=== PATIENT | female | born 1970 | race Caucasian/White ===

== ENCOUNTER 2016-08-21 19:48 | Emergency (ER) | payer OTHER ==
[~2016-08-21] VITALS: Ht 167.6 cm; Wt 170.9 kg
[~2016-08-21 19:48] MED LIST: HYDR-971 PO; HYDR1TAB10 PO; IBUP200C PO; METH-37 PO; NAPR500T3 PO; TRAM50TA PO
[2016-08-21 20:00] VITALS: BP 130/67
[2016-08-21] MEDS ORDERED: PRED20TA PO (20:42)
[2016-08-21] MEDS ORDERED: AZIT250T6 PO (20:42)
[2016-08-21] MEDS ORDERED: ALBUTEROL SULFATE 8GM INHALER. INH ONE (21:00)
[2016-08-21] MEDS ORDERED: PREDNISONE 20 MG TABLET PO ONE (21:00)
--- NOTE | 2016-08-21 23:08 | ED.ADGEN ---
Past History Past Medical History: COPD Past Surgical History: Appendectomy, Cholecystectomy, , Hysterectomy, Other Smoking: Cigarettes, Greater than 1 pack/day Alcohol Use: None Drug Use: None Adult General HPI HPI Patient is a 45-year-old female presents emergency department complaining of 3 days of worsening cough. She reports subjective fever. She is a lifelong smoker. Review of Systems Review of Systems Constitutional: Denies fever or chills [] Eyes: Denies change in visual acuity, redness, or eye pain [] HENT: Denies nasal congestion or sore throat [] Respiratory: Denies cough or shortness of breath [] Cardiovascular: No additional information not addressed in HPI [] GI: Denies abdominal pain, nausea, vomiting, bloody stools or diarrhea [] : Denies dysuria or hematuria [] Musculoskeletal: Denies back pain or joint pain [] Integument: Denies rash or skin lesions [] Neurologic: Denies headache, focal weakness or sensory changes [] Endocrine: Denies polyuria or polydipsia [] Current Medications Current Medications Current Medications Medications (Trade) Dose Ordered Sig/[place] Start Time Stop Time Status Last Admin Dose Admin Albuterol Sulfate (Ventolin Hfa) 1 puff 1X ONCE 08/21/16 21:00 08/21/16 21:01 DC Prednisone (Prednisone) 60 mg 1X ONCE 08/21/16 21:00 08/21/16 21:01 DC 08/21/16 21:00 60 MG Allergies Allergies Allergies Coded Allergies Type Severity Reaction Last Updated Verified No Known Drug Allergies 09/24/13 No Physical Exam Physical Exam Constitutional: Well developed, well nourished, no acute distress, non-toxic appearance. [] HENT: Normocephalic, atraumatic, bilateral external ears normal, oropharynx moist, no oral exudates, nose normal. [] Eyes: PERRLA, EOMI, conjunctiva normal, no discharge. [] Neck: Normal range of motion, no tenderness, supple, no stridor. [] Cardiovascular:Heart rate regular rhythm, no murmur [] Lungs & Thorax: Bilateral breath sounds diminished with scattered wheezes [] Abdomen: Bowel sounds normal, soft, no tenderness, no masses, no pulsatile masses. [] Skin: Warm, dry, no erythema, no rash. [] Back: No tenderness, no CVA tenderness. [] Extremities: No tenderness, no cyanosis, no clubbing, ROM intact, no edema. [] Neurologic: Alert and oriented X 3, normal motor function, normal sensory function, no focal deficits noted. [] Psychologic: Affect normal, judgement normal, mood normal. [] Current Patient Data Vital Signs Vital Signs Date Time Temp Pulse Resp B/P Pulse Ox O2 Delivery O2 Flow Rate FiO2 08/21/16 20:53 96 Room Air 08/21/16 20:00 98.5 78 15 EKG EKG [] Radiology/Procedures Radiology/Procedures [] Course & Med Decision Making Course & Med Decision Making Pertinent Labs and Imaging studies reviewed. (See chart for details) Albuterol, prednisone, Zithromax. Will follow with her doctor as needed return emergency department sooner she develops any new or worsening symptoms [] Final Impression Final Impression bronchitis[] Problems: Dragon Disclaimer Dragon Disclaimer This chart was dictated in whole or in part using Voice Recognition software in a busy, high-work load, and often noisy Emergency Department environment. It may contain unintended and wholly unrecognized errors or omissions. BARBI POSEY MD Aug 21, 2016 23:08
== END 2016-08-21 21:30 | disposition home or self-care (01) ==
LOC: ER 19:49
DX: J40 Bronchitis, not specified as acute or chronic (principal); J44.9 Chronic obstructive pulmonary disease, unspecified; F17.210 Nicotine dependence, cigarettes, uncomplicated
CPT/HCPCS: 94640; 99283; J7512; J7613; 94664